=== PATIENT | male | born 1950 | race Asian ===

== ENCOUNTER 2017-09-11 22:18 | Emergency (ER) | payer OTHER ==
[~2017-09-11] VITALS: Ht 170.2 cm; Wt 68.0 kg
[2017-09-11] MEDS ORDERED: FUROSEMIDE20 M1 ORAL (22:22)
[2017-09-11] MEDS ORDERED: SYMBICORT 16010.2 G1 IH (22:23)
[2017-09-11] MEDS ORDERED: PROAIR HFA8.5 GM INH (22:24)
[2017-09-11 22:46] VITALS: BP 141/75
[2017-09-11 23:00] VITALS: BP 141/75
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
== END 2017-09-11 23:00 | disposition home or self-care (01) ==
LOC: EDBD 22:18 → EMR 22:41
DX: F41.9 Anxiety disorder, unspecified (principal); I10 Essential (primary) hypertension; J45.909 Unspecified asthma, uncomplicated; K21.9 Gastro-esophageal reflux disease without esophagitis; F43.10 Post-traumatic stress disorder, unspecified
CPT/HCPCS: 99283